=== PATIENT | male | born 1945 ===

== ENCOUNTER 2019-08-04 18:08 | Outpatient (REF) | payer OTHER, SELFPAY ==
[2019-08-04 18:59] LABS: HCT 35.8 % (40.0-50.0); HGB 11.7 g/dL (13.5-17.5); Mean Corp. HGB Concentration 32.7 g/dL (32.0-36.0); Mean Corpuscular Hemoglobin 29.5 pg (27.0-33.0); Mean Corpuscular Volume 90.2 fL (80-95); Platelet Count 219 x1000/uL (130-400); RBC 3.97 m/cumm (4.50-6.00); RBC Distribution Width 12.8 % (11.8-14.1); White Blood Cell Count 6.69 k/cumm (4.4-10.8)
[2019-08-04 19:06] LABS: Prothrombin Time 10.4 sec (9.3-11.0)
[2019-08-04 19:26] LABS: Iron 77 ug/dL (65-175)
[2019-08-04 19:34] LABS: ALT 22 U/L (16-63); AST 11 U/L (15-37); Albumin 3.2 g/dL (3.4-5.0); Alkaline Phosphatase 92 U/L (46-116); Anion Gap 5.7 mmol/L (3-11); BUN 25 mg/dL (7-18); Bilirubin, Total 0.3 mg/dL (0.2-1.0); CO2 32.3 mmol/L (21.0-32.0); CREATININE 1.12 mg/dL (0.70-1.30); Calcium 9.4 mg/dL (8.5-10.1); Chloride 107 mmol/L (98-107); Ferritin 61 ng/mL (26-388); Glucose 108 mg/dL (74-106); Sodium 145 mmol/L (136-145); TSH 1.61 uIU/mL (0.36-3.74); Total Protein 7.5 g/dL (6.4-8.2)
== END 2019-08-04 18:28 ==
LOC: NCHCN 18:08
PROVIDERS: Visit Provider Internal Medicine
DX: J01.10 Acute frontal sinusitis, unspecified (principal); R53.83 Other fatigue; C25.9 Malignant neoplasm of pancreas, unspecified; I10 Essential (primary) hypertension; M16.11 Unilateral primary osteoarthritis, right hip
CPT/HCPCS: 80053; 85027; 82728; 83540; 84443; 85610

== ENCOUNTER 2019-09-08 16:13 | Outpatient (REF) | payer OTHER, SELFPAY ==
[2019-09-08 20:14] LABS: Abs Immature Grans 0.01 k/cumm (0.0-0.09); Absolute Basophil Count 0.01 k/cumm (0.0-0.2); Absolute Eosinophil Count 0.18 k/cumm (0.0-0.7); Absolute Lymphocyte Count 2.12 k/cumm (1.2-3.4); Absolute Monocyte Count 0.53 k/cumm (0.11-0.7); Absolute Neutrophil Count 2.18 k/cumm (1.2-6.7); Basophils % 0.2; Eosinophils % 3.6; HCT 38.9 % (40.0-50.0); HGB 12.6 g/dL (13.5-17.5); Immature Grans % 0.2 %; Lymphocytes % 42.1; Mean Corp. HGB Concentration 32.4 g/dL (32.0-36.0); Mean Corpuscular Hemoglobin 28.7 pg (27.0-33.0); Mean Corpuscular Volume 88.6 fL (80-95); Mean Platelet Volume 9.1 fL (8.0-11.0); Monocytes % 10.5; Neutrophils % 43.4; Platelet Count 159 x1000/uL (130-400); RBC 4.39 m/cumm (4.50-6.00); RBC Distribution Width 13.2 % (11.8-14.1); White Blood Cell Count 5.03 k/cumm (4.4-10.8)
[2019-09-08 20:21] LABS: Anion Gap 6.5 mmol/L (3-11); CO2 30.5 mmol/L (21.0-32.0); Chloride 104 mmol/L (98-107); Sodium 141 mmol/L (136-145)
[2019-09-08 20:31] LABS: Hemoglobin A1C 6.4 % (3.8-5.6)
[2019-09-08 20:46] LABS: ALT 54 U/L (16-63); AST 57 U/L (15-37); Albumin 3.4 g/dL (3.4-5.0); Alkaline Phosphatase 91 U/L (46-116); BUN 18 mg/dL (7-18); Bilirubin, Total 0.4 mg/dL (0.2-1.0); Calcium 9.6 mg/dL (8.5-10.1); Estimated GFR 39.82 (mL/min/1.73m2); Glucose 100 mg/dL (74-106)
== END 2019-09-08 16:33 ==
LOC: NCHCN 16:13
PROVIDERS: PCP Nurse Practitioner Family; Visit Provider Nurse Practitioner Family
DX: R53.83 Other fatigue (principal); D64.9 Anemia, unspecified; R63.4 Abnormal weight loss
CPT/HCPCS: 80053; 83036; 85025